=== PATIENT | female | born 1995 | race Caucasian/White ===

== ENCOUNTER 2017-03-17 13:57 | Emergency (ER) | payer OTHER ==
[~2017-03-17] VITALS: Ht 149.9 cm; Wt 55.5 kg
[2017-03-17] MEDS ORDERED: IBUP-1114 PO (14:08)
[2017-03-17] MEDS ORDERED: NORCOTAB PO (15:53)
[2017-03-17] MEDS ORDERED: KEFL500C17 PO (15:53)
[2017-03-17 16:26] VITALS: BP 110/64
--- NOTE | 2017-03-18 06:42 | REP ---
LEFT FOURTH FINGER SERIES COMPLETE: 03/17/2017. Clinical history: Crush injury to the distal fourth digit. Findings: Four views show a mildly comminuted distal tuft fracture of the distal phalanx consistent with a subtle nondisplaced fracture with lucency along the ulnar aspect of the proximal metaphysis of the distal phalanx. IP joint intact. No other findings. Impression: 1. Distal tuft fracture fourth digit with a subtle nondisplaced fracture proximal metaphysis of the distal phalanx on its ulnar aspect without articular involvement. No other finding. Signed by Bruce Stein MD 03/18/2017 07:53 A
== END 2017-03-17 16:29 | disposition home or self-care (01) ==
LOC: M ED 13:57
DX: S62.605B Fracture of unspecified phalanx of left ring finger, initial encounter for open fracture (principal); S60.142A Contusion of left ring finger with damage to nail, initial encounter; W23.0XXA Caught, crushed, jammed, or pinched between moving objects, initial encounter; Y92.89 Other specified places as the place of occurrence of the external cause; Y93.89 Activity, other specified; Y99.1 Military activity

== ENCOUNTER 2017-03-21 18:08 | Emergency (ER) | payer OTHER ==
[~2017-03-21] VITALS: Ht 149.9 cm; Wt 58.8 kg
[~2017-03-21 18:08] MED LIST: IBUP-1114 PO; KEFL500C17 PO; NORCOTAB PO
[2017-03-21] MEDS ORDERED: ACETAMINOPHEN 325 MG TAB PO ONE (18:45)
[2017-03-21] MEDS ORDERED: NS 1,000 ML IV ONE (18:45)
[2017-03-21 20:30] LABS: MEAN CORPUSCULAR HEMOGLOBIN 28.5 pg (27.0-33.0); MEAN CORPUSCULAR HGB CONC 33.9 g/dl (32.0-36.5); MEAN CORPUSCULAR VOLUME 84.1 fl (80.0-96.0); RED CELL DISTRIBUTION WIDTH 13.1 % (11.5-14.5); WHITE BLOOD COUNT 14.1 K/mm3 (4.0-10.0)
[2017-03-21 20:44] LABS: ANION GAP 8 MEQ/L (8-16); BLOOD UREA NITROGEN 9 MG/DL (7-18); CALCIUM LEVEL 8.6 MG/DL (8.5-10.1); CARBON DIOXIDE LEVEL 24 MEQ/L (21-32); CHLORIDE LEVEL 105 MEQ/L (98-107); GLUCOSE, FASTING 90 MG/DL (70-105); POTASSIUM SERUM 3.9 MEQ/L (3.5-5.1); SODIUM LEVEL 137 MEQ/L (136-145)
[2017-03-21] MEDS ORDERED: cefTRIAXone SOD 1 GM in D5W MINI-BAG PLUS 50 ML IV ONE (21:00)
[2017-03-21 21:50] VITALS: BP 102/53
[2017-06-20] MEDS ORDERED: TYLE325T5 PO (15:39)
[2017-06-20] MEDS ORDERED: DRAM50TA7 PO (17:14)
== END 2017-03-21 22:06 | disposition home or self-care (01) ==
LOC: M ED 18:08
DX: N39.0 Urinary tract infection, site not specified (principal); F17.200 Nicotine dependence, unspecified, uncomplicated
CPT/HCPCS: 80048; 81001; 83605; 85027; 87088; 87186; 96361; 96365; 99283; J0696

== ENCOUNTER 2017-10-13 20:20 | Emergency (ER) | payer OTHER | END 2017-10-13 21:33 | disposition home or self-care (01) | LOC: M ED 20:20 | DX: O99.612 Diseases of the digestive system complicating pregnancy, second trimester (principal); K21.9 Gastro-esophageal reflux disease without esophagitis; Z3A.23 23 weeks gestation of pregnancy; Z87.891 Personal history of nicotine dependence | CPT/HCPCS: 99283 ==